=== PATIENT | female | born 1965 | race African-American/Black ===

== ENCOUNTER 2016-11-04 14:57 | Inpatient (IN) | payer MEDICAID ==
[~2016-11-04] VITALS: Ht 162.6 cm; Wt 92.8 kg
[2016-11-04] MEDS ORDERED: PANTOPRAZOLE SODIUM 40 MG/10 ML VIAL IV STA (15:54)
[2016-11-04] MEDS ORDERED: SODIUM CHLORIDE 0.9% 500 ML IVB ONE (15:54)
[2016-11-04] MEDS ORDERED: MORPHINE SULFATE 4 MG/ML SYRG IV ONE ×2 (16:00→20:15)
[2016-11-04] MEDS ORDERED: ONDANSETRON HCL 4 MG/2 ML VIAL IV ONE (16:00)
[2016-11-04 16:19] LABS: Basophils # (auto) 0 uL; Basophils % (auto) 0.6 % (0.0-2.0); Eosinophils # (auto) 0.2 uL; Eosinophils % (auto) 3.4 % (0.0-7.0); Hematocrit 39.1 % (36.0-46.0); Hemoglobin 12.8 g/dL (12.2-16.2); Lymphocytes # (auto) 1.7 uL; Lymphocytes % (auto) 33.8 % (10.0-50.0); Mean Corpuscular Hemoglobin 29.3 pg (28.0-32.0); Mean Corpuscular Hgb Conc. 32.8 g/dL (32.0-36.0); Mean Corpuscular Volume 89.4 fL (80.0-100.0); Mean Platelet Volume 8.2 fL (7.4-10.4); Monocytes # (auto) 0.3 uL; Monocytes % (auto) 5.3 % (0.0-12.0); Neutrophils # (auto) 2.9 uL; Neutrophils % (auto) 56.9 % (37.0-80.0); Platelet Count (auto) 352 10^3/uL (140-450); Red Cell Distribution Width 15.6 % (11.6-16.0); White Blood Cell 5.1 10^3/uL (4.4-10.8)
[2016-11-04 16:25] LABS: Albumin 3.1 g/dL (3.4-5.0); Anion Gap 11 (5-15); Aspartate Aminotransferase 12 U/L (15-37); BUN/Creatinine Ratio 10.1; Blood Urea Nitrogen 10 mg/dL (7-18); Calcium 8.4 mg/dL (8.5-10.1); Carbon Dioxide 23 mmol/L (21-32); Chloride 109 mmol/L (98-107); GFR African American 76 mL/min; GFR Non-African American 63 mL/min; Glucose 97 mg/dL (74-106); Potassium 3.6 mmol/L (3.5-5.1); Sodium 143 mmol/L (136-145)
[2016-11-04 16:26] LABS: Urine Bilirubin Negative (Negative); Urine Blood Negative /uL (Negative); Urine Color Yellow (Yellow); Urine Glucose Normal (Normal); Urine Ketone Negative (Negative); Urine Mucus FEW (None Seen); Urine Nitrite Negative (Negative); Urine RBC 9 /hpf (0 - 4); Urine Squamous Epithelial Cell MOD /hpf (<5)
[2016-11-04 16:28] LABS: Alkaline Phosphatase 66 U/L (45-117); Bilirubin, Total 0.2 mg/dL (0.2-1.0); Total Protein 7.6 g/dL (6.4-8.2)
[2016-11-04 16:36] LABS: Magnesium 2.4 mg/dL (1.6-2.6)
[2016-11-04] MEDS ORDERED: IOHEXOL 300 MG/ML 100ML BOTTLE IJ ONE (17:42)
[2016-11-04] MEDS ORDERED: cloNIDine HCL 0.1 MG TAB PO ONE (19:45)
[2016-11-04] MEDS ORDERED: cloNIDine HCL 0.1 MG TAB ONE (19:48)
[2016-11-04] MEDS ORDERED: ONDANSETRON HCL 4 MG/2 ML VIAL ONE (20:11)
[2016-11-04] MEDS ORDERED: NITROGLYCERIN 0.4 MG SL TAB SL PRN (21:15)
[2016-11-04] MEDS ORDERED: cefTRIAXone 1GM/50ML D5W 50 ML IV ONE (21:15)
[2016-11-04] MEDS ORDERED: MORPHINE SULF INJ 2 MG/ML SYRINGE 1ML IV PRN (21:15)
[2016-11-04] MEDS ORDERED: cloNIDine HCL 0.1 MG TAB PO PRN (21:15)
[2016-11-04] MEDS ORDERED: traMADol HCL 50 MG TAB PO PRN (21:15)
[2016-11-04] MEDS ORDERED: SODIUM CHLORIDE 0.9% 250 ML IV ONE (21:15)
[2016-11-04] MEDS: LABETALOL HCL 200 MG TAB PO SCH (22:06)
[2016-11-04] MEDS ORDERED: TRAM50TA2 PO (22:57)
[2016-11-04] MEDS ORDERED: AMLO5TAB2 PO (22:57)
[2016-11-04] MEDS ORDERED: LABE100T PO (22:57)
[2016-11-04] MEDS ORDERED: FURO40TA PO (22:57)
[2016-11-04] MEDS ORDERED: CLON0.1T PO (22:57)
[2016-11-04] MEDS: metroNIDAZOLE 500MG/100ML 100 ML IV SCH (23:14)
[2016-11-04] MEDS: SODIUM CHLORIDE 0.9% 1,000 ML IV SCH (23:14)
[2016-11-05 00:06] VITALS: BP 121/76
[2016-11-05] MEDS: MORPHINE SULF INJ 2 MG/ML SYRINGE 1ML IV PRN ×3 (03:02→20:10)
[2016-11-05] MEDS: ONDANSETRON HCL 4 MG/2 ML VIAL IV PRN ×4 (03:02→20:07)
[2016-11-05] MEDS: metroNIDAZOLE 500MG/100ML 100 ML IV SCH ×4 (04:32→21:45)
[2016-11-05 05:30] VITALS: BP 152/78
[2016-11-05 07:05] LABS: Basophils # (auto) 0 uL; Basophils % (auto) 0.5 % (0.0-2.0); Eosinophils # (auto) 0.2 uL; Eosinophils % (auto) 4.4 % (0.0-7.0); Hematocrit 34.5 % (36.0-46.0); Hemoglobin 11.4 g/dL (12.2-16.2); Lymphocytes # (auto) 1.8 uL; Lymphocytes % (auto) 43.2 % (10.0-50.0); Mean Corpuscular Hemoglobin 29.5 pg (28.0-32.0); Mean Corpuscular Hgb Conc. 33.1 g/dL (32.0-36.0); Mean Corpuscular Volume 89.3 fL (80.0-100.0); Mean Platelet Volume 8.1 fL (7.4-10.4); Monocytes # (auto) 0.4 uL; Monocytes % (auto) 8.8 % (0.0-12.0); Neutrophils # (auto) 1.8 uL; Neutrophils % (auto) 43.1 % (37.0-80.0); Platelet Count (auto) 309 10^3/uL (140-450); Red Cell Distribution Width 15.3 % (11.6-16.0); White Blood Cell 4.2 10^3/uL (4.4-10.8)
[2016-11-05 08:09] LABS: Albumin 2.9 g/dL (3.4-5.0); BUN/Creatinine Ratio 9.2; Bilirubin, Total 0.2 mg/dL (0.2-1.0); Calcium 8.2 mg/dL (8.5-10.1); Potassium 3.6 mmol/L (3.5-5.1); Total Protein 6.5 g/dL (6.4-8.2)
[2016-11-05 09:00] VITALS: BP 129/72
[2016-11-05] MEDS: cefTRIAXone 1GM/50ML D5W 50 ML IV SCH (09:59)
[2016-11-05] MEDS ORDERED: FUROSEMIDE 20 MG TAB PO SCH (10:00)
[2016-11-05] MEDS: SODIUM CHLORIDE 0.9% 1,000 ML IV SCH ×2 (10:30→20:07)
[2016-11-05] MEDS: PANTOPRAZOLE SODIUM 40 MG/10 ML VIAL IV SCH (10:47)
[2016-11-05] MEDS: LABETALOL HCL 200 MG TAB PO SCH ×2 (10:52→21:45)
[2016-11-05] MEDS: amLODIPine BESYLATE 5 MG TAB PO SCH (11:28)
[2016-11-05 13:00] VITALS: BP 151/79
[2016-11-05 16:44] VITALS: BP 151/79
[2016-11-05 22:00] VITALS: BP 157/56
[2016-11-06] MEDS: ONDANSETRON HCL 4 MG/2 ML VIAL IV PRN ×5 (01:01→22:45)
[2016-11-06] MEDS: MORPHINE SULF INJ 2 MG/ML SYRINGE 1ML IV PRN ×5 (01:08→22:51)
[2016-11-06] MEDS: metroNIDAZOLE 500MG/100ML 100 ML IV SCH ×4 (04:00→21:34)
[2016-11-06 06:04] VITALS: BP 153/63
[2016-11-06 06:17] LABS: BUN/Creatinine Ratio 8.7; Calcium 7.9 mg/dL (8.5-10.1); Potassium 3.4 mmol/L (3.5-5.1)
[2016-11-06 08:00] VITALS: BP 152/94
[2016-11-06] MEDS: cefTRIAXone 1GM/50ML D5W 50 ML IV SCH (08:30)
[2016-11-06 08:56] VITALS: BP 152/94
[2016-11-06] MEDS: LABETALOL HCL 200 MG TAB PO SCH ×2 (09:33→21:35)
[2016-11-06] MEDS: amLODIPine BESYLATE 5 MG TAB PO SCH (09:34)
[2016-11-06] MEDS: PANTOPRAZOLE SODIUM 40 MG/10 ML VIAL IV SCH (09:34)
[2016-11-06] MEDS ORDERED: POTASSIUM CHL 20 Meq TABLET PO ONE (11:00)
[2016-11-06 13:00] VITALS: BP 159/66
[2016-11-06 16:43] VITALS: BP 143/77
[2016-11-06] MEDS ORDERED: SODIUM CHLORIDE 0.9% 1,000 ML IV SCH (21:10)
[2016-11-06 21:34] VITALS: BP 125/74
[2016-11-06] MEDS ORDERED: ATORVASTATIN 20 MG TAB PO SCH (22:00)
[2016-11-07] MEDS: metroNIDAZOLE 500MG/100ML 100 ML IV SCH ×2 (04:08→09:28)
[2016-11-07] MEDS: ONDANSETRON HCL 4 MG/2 ML VIAL IV PRN ×2 (04:08→09:29)
[2016-11-07] MEDS: MORPHINE SULF INJ 2 MG/ML SYRINGE 1ML IV PRN ×2 (04:08→09:29)
[2016-11-07 04:43] VITALS: BP 150/67
[2016-11-07 08:00] VITALS: BP 140/69
[2016-11-07 08:43] VITALS: BP 140/69
[2016-11-07] MEDS: cefTRIAXone 1GM/50ML D5W 50 ML IV SCH (09:27)
[2016-11-07] MEDS: LABETALOL HCL 200 MG TAB PO SCH (09:28)
[2016-11-07] MEDS: PANTOPRAZOLE SODIUM 40 MG/10 ML VIAL IV SCH (09:28)
[2016-11-07] MEDS: amLODIPine BESYLATE 5 MG TAB PO SCH (09:29)
[2016-11-07] MEDS ORDERED: PANT40TA2 PO (12:00)
[2016-11-07] MEDS ORDERED: ATOR10TA PO (12:00)
[2016-11-07] MEDS ORDERED: POTASSIUM CHL 20 Meq TABLET PO ONE (12:00)
[2016-11-07] MEDS ORDERED: cloNIDine HCL 0.1 MG TAB PO ONE (12:30)
[2016-11-07] MEDS ORDERED: PANTOPRAZOLE 40 MG TAB PO ONE (12:30)
[2016-11-07 12:31] VITALS: BP 140/69
[2016-11-07] MEDS ORDERED: cloNIDine HCL 0.1 MG TAB PO SCH (22:00)
[2016-11-08] MEDS ORDERED: PANTOPRAZOLE 40 MG TAB PO SCH (10:00)
== END 2016-11-07 13:25 | disposition home or self-care (01) | DRG 254 ==
LOC: ER 15:03 → WEST WING 15:04
PROVIDERS: ADMIT Family Medicine; ATTEND Internal Medicine
DX: K37 Unspecified appendicitis (principal); K56.2 Volvulus; N39.0 Urinary tract infection, site not specified; F17.210 Nicotine dependence, cigarettes, uncomplicated; E66.9 Obesity, unspecified; I10 Essential (primary) hypertension; E78.5 Hyperlipidemia, unspecified; Z90.49 Acquired absence of other specified parts of digestive tract; Z90.710 Acquired absence of both cervix and uterus; Z68.35 Body mass index [BMI] 35.0-35.9, adult
CPT/HCPCS: 36415; 74177; 80048; 80053; 80061; 81001; 83690; 83735; 84484; 85025; 87086; 93005; 94761; 96361; 96365; 96375; 96376; C9113; J0696; J2405; J3490